=== PATIENT | male | born 1970 | race Caucasian/White ===

== ENCOUNTER 2017-07-01 22:59 | Emergency (ER) | payer SELFPAY ==
[2017-07-02 00:26] LABS: ABSOLUTE RETICS # 0.177 10^6/uL (0.028-0.122); HEMATOCRIT 37.3 % (37.9-51.0); MEAN CORPUSCULAR HEMOGLOBIN 21.5 pg (27.0-33.4); MEAN CORPUSCULAR HGB CONC 32.1 g/dL (32.0-36.0); MEAN CORPUSCULAR VOLUME 67 fl (80-97); PLATELET COUNT 451 10^3/uL (150-450); RED BLOOD COUNT 5.57 10^6/uL (4.35-5.55); RED CELL DISTRIBUTION WIDTH 22.2 % (11.5-14.0); RETICULOCYTE COUNT (AUTO) 3.17 % (0.66-2.85)
[2017-07-02 00:53] LABS: ABSOLUTE MONOCYTES # (MANUAL) 0.8 10^3/uL (0.1-1.4); BASOPHILS % (MANUAL) 0 % (0-2); EOSINOPHILS % (MANUAL) 0 % (0-6); LYMPHOCYTES % (MANUAL) 11 % (13-45); MONOCYTES % (MANUAL) 6 % (3-13); SEGMENTED NEUTROPHILS % (MAN) 83 % (42-78); TOTAL CELLS COUNTED 100
[2017-07-02 00:55] LABS: ALANINE AMINOTRANSFERASE 46 U/L (21-72); ALBUMIN 4.8 g/dL (3.5-5.0); ALKALINE PHOSPHATASE 107 U/L (38-126); ANION GAP 16 (5-19); ASPARTATE AMINO TRANSFERASE 49 U/L (17-59); BILIRUBIN,DIRECT 0.3 mg/dL (0.0-0.4); BILIRUBIN,TOTAL 1.5 mg/dL (0.2-1.3); BLOOD UREA NITROGEN 14 mg/dL (7-20); CARBON DIOXIDE 25 mmol/L (22-30); CHLORIDE 103 mmol/L (98-107); GLUCOSE 117 mg/dL (75-110); POTASSIUM 4.6 mmol/L (3.6-5.0); SODIUM 144.2 mmol/L (137-145); TOTAL PROTEIN 8.3 g/dL (6.3-8.2)
[2017-07-02 01:03] LABS: ANISOCYTOSIS 3+; HYPOCHROMASIA 3+; POIKILOCYTOSIS 3+; POLYCHROMASIA 1+
[2017-07-02 01:05] LABS: PLATELET COMMENT INCREASED
[2017-07-02 01:06] LABS: WHITE BLOOD COUNT 12.9 10^3/uL (4.0-10.5)
[2017-07-02 01:08] LABS: ABSOLUTE LYMPHOCYTES# (MANUAL) 1.4 10^3/uL (0.5-4.7); ABSOLUTE NEUTROPHILS# (MANUAL) 10.7 10^3/uL (1.7-8.2)
[2017-07-02 01:10] LABS: NUCLEATED RED BLOOD CELLS 8 /100 WBC (0); TARGET CELLS 3+
[2017-07-02] MEDS ORDERED: NORMAL SALINE 1000 ML 1,000 ML IV ONE (01:19)
--- NOTE | 2017-07-02 02:21 | RADIOLOGY REPORT (SQ) ---
EXAM DESCRIPTION: CHEST PA/LAT CLINICAL HISTORY: 46 years, Male, fever COMPARISON: None. FINDINGS: Normal lung volume, clear parenchyma, normal cardiac silhouette, and intact bony thorax. Right upper abdominal clips. IMPRESSION: No acute cardiopulmonary findings.
[2017-07-02] MEDS ORDERED: LEVOFLOXACIN 750 MG TABLET PO ONE (03:39)
[2017-07-02] MEDS ORDERED: KETOROLAC TROMETHAMINE INJ/PF 30 MG/1 ML SDV IV ONE (03:39)
--- NOTE | 2017-07-02 03:45 | ER Document Report ---
ED General - General Chief Complaint: Sickle Cell Crisis Stated Complaint: POSSIBLE SICKLE CELL CRISIS,FEVER Time Seen by Provider: 07/02/17 01:18 Notes: Patient is a 46-year-old male with a past medical history of sickle cell anemia who presents with fever. The patient notes that his only symptoms today have been chills and recording a fever at home. Symptoms have been unchanged in onset and were relatively abrupt in onset. He has not done anything to treat this symptom. Nothing seems to improve or worsen it. He states that he has had similar fevers in the past and is typically admitted to the hospital but he is uncertain of why that is done. He denies any localizing infectious symptoms at this time. No known sick contacts. He denies any daily medications. He does not yet have a local primary care doctor or credit union examiner. TRAVEL OUTSIDE OF THE [place] IN LAST 30 DAYS: No Past Medical History - General Information source: Patient - Social History Smoking Status: Never Smoker Frequency of alcohol use: None Drug Abuse: None Lives with: Alone Family History: Reviewed & Not Pertinent Review of Systems - Review of Systems Notes: Constitutional: Positive for fever. HENT: Negative for sore throat. Eyes: Negative for visual changes. Cardiovascular: Negative for chest pain. Respiratory: Negative for shortness of breath. Gastrointestinal: Negative for abdominal pain, vomiting or diarrhea. Genitourinary: Negative for dysuria. Musculoskeletal: Negative for back pain. Skin: Negative for rash. Neurological: Negative for headaches, weakness or numbness. 10 point ROS negative except as marked above and in HPI. Physical Exam - Vital signs Vitals: Temp Pulse Resp BP Pulse Ox 101.4 F H 103 H 20 121/77 99 07/01/17 23:31 07/01/17 23:31 07/01/17 23:31 07/01/17 23:31 07/01/17 23:31 Interpretation: Tachycardic, Febrile Notes: PHYSICAL EXAMINATION: GENERAL: Well-appearing, well-nourished and in no acute distress. HEAD: Atraumatic, normocephalic. EYES: Pupils equal round and reactive to light, extraocular movements intact, sclera anicteric, conjunctiva are normal. ENT: nares patent, oropharynx clear without exudates. Moist mucous membranes. NECK: Normal range of motion, supple without lymphadenopathy LUNGS: Breath sounds clear to auscultation bilaterally and equal. No wheezes rales or rhonchi. HEART: Regular rate and rhythm without murmurs ABDOMEN: Soft, nontender, normoactive bowel sounds. No guarding, no rebound. No masses appreciated. EXTREMITIES: Normal range of motion, no pitting or edema. No cyanosis. NEUROLOGICAL: No focal neurological deficits. Moves all extremities spontaneously and on command. PSYCH: Normal mood, normal affect. SKIN: Warm, Dry, normal turgor, no rashes or lesions noted. Course - Re-evaluation Re-evalutation: 07/02/17 03:41 Patient presents with concerns of fever without any additional symptoms. Patient recently moved to the area from [place] and has not yet established hematology or primary care follow-up. The patient is otherwise extremely well in appearance, no focal findings on examination. Laboratories showed minimal anemia, white count of 12, chemistries are within acceptable limits. Chest x-ray is clear. Urinalysis without evidence of infection. No skin lesions. Exact source of the patient's fever is uncertain to me. I have contacted Dr. Live the credit union examiner operations specialists for clarification on management guidance given the patient does have a fever in the setting of sickle cell anemia without an obvious source. She agrees that given the patient is extremely well in appearance, vitals are within normal limits, and his labs are overall quite reassuring and he does not have a definitive source of infection that he can be started on prophylactic levofloxacin and follow-up with her in clinic within the next 24-48 hours. The patient is likewise in agreement with this plan. At this time will discharge with return precautions and follow-up recommendations. Verbal discharge instructions given a the bedside and opportunity for questions given. Medication warnings reviewed. Patient is in agreement with this plan and has verbalized understanding of return precautions and the need for hematology follow-up in the next 24-48 hours. - Vital Signs Vital signs: Temp Pulse Resp BP Pulse Ox 101.4 F H 103 H 20 121/77 99 07/01/17 23:31 07/01/17 23:31 07/01/17 23:31 07/01/17 23:31 07/01/17 23:31 - Laboratory Result Diagrams: 07/01/17 23:55 07/01/17 23:55 Laboratory results interpreted by me: 07/01/17 07/01/17 07/02/17 23:55 23:55 03:20 WBC 12.9 H RBC 5.57 H Hgb 12.0 L Hct 37.3 L MCV 67 L MCH 21.5 L RDW 22.2 H Plt Count 451 H Seg Neuts % (Manual) 83 H Lymphocytes % (Manual) 11 L Abs Neuts (Manual) 10.7 H Retic Count (auto) 3.17 H Absolute Retic 0.177 H Glucose 117 H Total Bilirubin 1.5 H Total Protein 8.3 H Ur Leukocyte Esterase SMALL H - Diagnostic Test Radiology reviewed: Image reviewed, Reports reviewed Radiology results interpreted by me: 07/02/17 03:43 Chest x-ray: No acute infiltrate or pneumothorax Discharge - Discharge Clinical Impression: Fever of unknown origin Sickle cell anemia Qualifiers: Sickle-cell associated disorders: without crisis Qualified Code(s): D57.1 - Sickle-cell disease without crisis Condition: Good Disposition: HOME, SELF-CARE Additional Instructions: Today he had a fever of unclear origin. It may be viral in origin given that the remainder of your workup is normal. Blood cultures have been drawn and you have been started on prophylactic antibiotics at the time of discharge. I discussed her case with our credit union examiner operations specialists and would like to follow-up with her in the next 24-48 hours. Please contact the clinic in the morning to schedule follow-up appointment. Return to the emergency room immediately if he develops shortness of breath, severe headache, persistent vomiting, abdominal pain, or any other symptoms that are worrisome to you Prescriptions: Levofloxacin [Levaquin 750 mg Tablet] 750 mg PO DAILY #5 tablet Referrals: BENEDICTO LIVE MD [ACTIVE STAFF] - Follow up tomorrow
[2017-07-02 03:54] LABS: APPEARANCE,URINE CLEAR; BILIRUBIN,URINE NEGATIVE (NEGATIVE); COLOR,URINE STRAW; GLUCOSE, URINE NEGATIVE (NEGATIVE); KETONES,URINE NEGATIVE (NEGATIVE); LEUKOCYTE ESTERASE,URINE SMALL (NEGATIVE); NITRITE,URINE NEGATIVE (NEGATIVE); PROTEIN,URINE NEGATIVE (NEGATIVE); URINE SPECIFIC GRAVITY 1.009; UROBILINOGEN,URINE NEGATIVE mg/dL (<2.0)
[2017-07-02 06:24] VITALS: BP 116/63
== END 2017-07-02 06:25 | disposition home or self-care (01) ==
LOC: ER 22:59
DX: R50.9 Fever, unspecified (principal); D57.1 Sickle-cell disease without crisis
CPT/HCPCS: 99284; 96361; 96374; 36415; 87040; 87086; 85025; 85045; 80053; 81001; 83605; 71046; J1885; J7030

== ENCOUNTER → 2018-12-16 | Outpatient (CLI) | payer BC ==
--- NOTE | 2018-12-16 14:51 | RADIOLOGY REPORT (SQ) ---
EXAM DESCRIPTION: SHOULDER BILAT 2 OR MORE VIEWS COMPLETED DATE/TIME: 12/16/2018 1:45 pm REASON FOR STUDY: M25.511 PAIN IN RIGHT SHOULDER M25.511 PAIN IN RIGHT SHOULDER COMPARISON: None. NUMBER OF VIEWS: Three views. TECHNIQUE: Internal rotation, external rotation, and Y view images acquired of the right and left sh oulder. LIMITATIONS: None. FINDINGS: MINERALIZATION: Normal. BONES: No acute fracture. No worrisome bone lesions. JOINTS: No dislocation. VISUALIZED LUNGS AND RIBS: No pneumothorax. No rib fracture. SOFT TISSUES: No radiopaque foreign body. OTHER: No other significant finding. IMPRESSION: NEGATIVE STUDY OF THE RIGHT AND LEFT SHOULDERS. NO RADIOGRAPHIC EVIDENCE OF ACUTE INJURY . TECHNICAL DOCUMENTATION: JOB ID: [id number]- All Rights Reserved Reading location - IP/workstation name: [email or web address]
== END ==
LOC: RAD 12:59
PROVIDERS: ATTEND Nurse Practitioner Family
DX: M25.511 Pain in right shoulder (principal)

== ENCOUNTER → 2019-05-30 | Outpatient (CLI) | payer BC ==
--- NOTE | 2019-05-30 16:57 | RADIOLOGY REPORT (SQ) ---
EXAM DESCRIPTION: U/S NON-OB PELVIS LTD W/O DOP COMPLETED DATE/TIME: 05/30/2019 4:29 pm REASON FOR STUDY: R10.30 LOWER ABDOMINAL PAIN, UNSPECIFIED R10.30 LOWER ABDOMINAL PAIN, UNSPECIFIED COMPARISON: None. TECHNIQUE: Dynamic and static grayscale images acquired of the localized site of clinical concern an d recorded on PACS. Additional selected color Doppler and spectral images recorded. SITE OF CONCERN: Right groin LIMITATIONS: None. FINDINGS: SKIN AND SUBCUTANEOUS TISSUES: No masses. No fluid collections. No edema. No foreign anali s. DEEP SOFT TISSUES/MUSCLES: No masses. No fluid collections. No edema. VASCULAR: Not imaged. OTHER: No other significant finding. IMPRESSION: Focused sonographic evaluation of the area of pain along the right groin without identif ied sonographic abnormality. TECHNICAL DOCUMENTATION: JOB ID: [id number] 2010 [employer]- All Rights Reserved Reading location - IP/workstation name: [email or web address]
== END ==
LOC: RAD 15:39
PROVIDERS: ATTEND Nurse Practitioner Family
DX: R10.30 Lower abdominal pain, unspecified (principal)
CPT/HCPCS: 76857

== ENCOUNTER → 2019-07-23 | Outpatient (CLI) | payer BC | LOC: OD 12:08 | PROVIDERS: ATTEND Otolaryngology | DX: J30.9 Allergic rhinitis, unspecified (principal) | CPT/HCPCS: 36415; 82785; 86003 ==

== ENCOUNTER → 2019-09-18 | Outpatient (CLI) | payer BC | LOC: OD 09:30 → EDSTATUS 09-23 13:15 | PROVIDERS: ATTEND Otolaryngology | DX: Z03.818 Encounter for observation for suspected exposure to other biological agents ruled out (principal) | CPT/HCPCS: 87635; C9803 ==

== ENCOUNTER 2020-01-06 04:09 | Emergency (ER) | payer BC ==
[2020-01-06 04:16] VITALS: BP 135/70
== END 2020-01-06 07:20 | disposition left against medical advice (07) ==
LOC: ER 04:09
DX: Z53.21 Procedure and treatment not carried out due to patient leaving prior to being seen by health care provider (principal)

== ENCOUNTER → 2020-04-28 | Outpatient (CLI) | payer BC ==
--- NOTE | 2020-04-28 12:31 | RADIOLOGY REPORT (SQ) ---
EXAM DESCRIPTION: SHOULDER BILAT 2 OR MORE VIEWS IMAGES COMPLETED DATE/TIME: 04/28/2020 11:00 am REASON FOR STUDY: SHOULDER PAIN M54.2 CERVICALGIA M25.511 PAIN IN RIGHT SHOULDER COMPARISON: 12/16/2018 NUMBER OF VIEWS: Three views. TECHNIQUE: Internal rotation, external rotation, and Y view images acquired of the right and left sh oulder. LIMITATIONS: None. FINDINGS: MINERALIZATION: Normal. BONES: No acute fracture. No worrisome bone lesions. No significant osteophytes. GLENOHUMERAL JOINT: No significant findings. ACROMIOCLAVICULAR JOINT: No large osteophytes. SOFT TISSUES: No calcifications. VISUALIZED RIBS, SPINE, AND LUNG: No other significant finding. OTHER: No other significant finding. IMPRESSION: NEGATIVE STUDY OF THE RIGHT AND LEFT SHOULDERS. NO EXPLANATION FOR PAIN. TECHNICAL DOCUMENTATION: JOB ID: [id number] 2010 [employer]- All Rights Reserved Reading location - IP/workstation name: [email or web address]
--- NOTE | 2020-04-28 12:32 | RADIOLOGY REPORT (SQ) ---
EXAM DESCRIPTION: CERV SP 4 OR 5 VIEWS IMAGES COMPLETED DATE/TIME: 04/28/2020 11:00 am REASON FOR STUDY: CERVICALGIA M54.2 CERVICALGIA M25.511 PAIN IN RIGHT SHOULDER COMPARISON: None. NUMBER OF VIEWS: Five views. TECHNIQUE: AP, lateral, obliques and odontoid radiographic images acquired of the cervical spine. LIMITATIONS: None. FINDINGS: MINERALIZATION: Normal. ALIGNMENT: Anatomic. VERTEBRAE: Vertebral bodies of normal height. DISCS: There is disc narrowing at C5-6 with small marginal osteophytes. FORAMINA: There is minimal narrowing of the neural foramina at C5-6 secondary to uncovertebral osteop hytes. LATERAL AND POSTERIOR ELEMENTS: Facets, lateral masses and spinous processes without significant find ings. HARDWARE: None in the spine. SOFT TISSUES: No masses or calcifications. Lung apices clear. OTHER: No other significant finding. IMPRESSION: Degenerative disc disease and spondylosis. TECHNICAL DOCUMENTATION: JOB ID: [id number] 2010 [employer]- All Rights Reserved Reading location - IP/workstation name: [email or web address]
== END ==
LOC: RAD 10:23
PROVIDERS: ATTEND Nurse Practitioner Family
DX: M50.322 Other cervical disc degeneration at C5-C6 level (principal); M47.812 Spondylosis without myelopathy or radiculopathy, cervical region; M25.511 Pain in right shoulder
CPT/HCPCS: 72050